=== PATIENT | male | born 1940 | race Caucasian/White ===

== ENCOUNTER 2021-12-15 21:50 | Emergency (ER) | payer OTHER ==
[~2021-12-15] VITALS: Ht 182.9 cm; Wt 105.0 kg
[2021-12-16 00:14] LABS: Urine Bacteria NONE SEEN /hpf (None Seen); Urine Blood 3+ /uL (Negative); Urine Mucus FEW (None Seen); Urine Specific Gravity 1.022 (1.001-1.035); Urine WBC 302 /hpf (0 - 3); Urine WBC Clumps PRESENT /hpf (None Seen)
[2021-12-16] MEDS ORDERED: CEPH-510 PO (00:24)
[2021-12-16] MEDS ORDERED: cefTRIAXone SOD 1,000 MG VL IM ONE (00:30)
[2021-12-16 00:48] VITALS: BP 128/65
== END 2021-12-16 00:50 | disposition home or self-care (01) ==
LOC: EDBD 21:50 → ER 21:53
DX: T83.518A Infection and inflammatory reaction due to other urinary catheter, initial encounter (principal); N39.0 Urinary tract infection, site not specified
CPT/HCPCS: 81001; 96372; 99283; J0696

== ENCOUNTER 2022-01-04 23:49 | Emergency (ER) | payer OTHER ==
[~2022-01-04] VITALS: Ht 185.4 cm; Wt 120.0 kg
[~2022-01-04 23:49] MED LIST: CEPH-510 PO
[2022-01-04 23:55] VITALS: BP 156/84
== END 2022-01-05 05:17 | disposition left against medical advice (07) ==
LOC: ER 23:49 → EDBD 23:49 → ER 01-05 05:17
DX: T83.091A Other mechanical complication of indwelling urethral catheter, initial encounter (principal); Z53.21 Procedure and treatment not carried out due to patient leaving prior to being seen by health care provider